=== PATIENT | male | born 1995 | race Caucasian/White ===

== ENCOUNTER 2022-10-12 21:36 | Emergency (ER) | payer SELFPAY ==
[~2022-10-12] VITALS: Ht 162.6 cm; Wt 84.0 kg
[2022-10-12 21:53] VITALS: BP 125/74
[2022-10-12] MEDS ORDERED: NEOM1PAC6 TP (23:30)
[2022-10-12] MEDS ORDERED: BACITRACIN ZINC OINT UDPKT TOP ONE (23:30)
[2022-10-12] MEDS ORDERED: TETANUS, DIPHTHERIA, PERTUSSIS VAC/PF 0.5ML (>10YR OLD) IM ONE (23:30)
== END 2022-10-13 00:11 | disposition home or self-care (01) ==
LOC: ER 21:36
DX: S61.309A Unspecified open wound of unspecified finger with damage to nail, initial encounter (principal); X58.XXXA Exposure to other specified factors, initial encounter; Y93.89 Activity, other specified; Y92.89 Other specified places as the place of occurrence of the external cause; Y99.8 Other external cause status
CPT/HCPCS: 99282; Z7610

== ENCOUNTER 2022-10-18 09:28 | Emergency (ER) | payer MEDICAID ==
[~2022-10-18] VITALS: Ht 162.6 cm; Wt 83.9 kg
[~2022-10-18 09:28] MED LIST: NEOM1PAC6 TP
[2022-10-18 09:33] VITALS: BP 120/75
== END 2022-10-18 10:36 | disposition home or self-care (01) ==
LOC: ER 10:31
DX: Z48.02 Encounter for removal of sutures (principal)
CPT/HCPCS: 99281; Z7610